=== PATIENT | male | born 2000 | race Caucasian/White ===

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

== ENCOUNTER 2025-03-23 18:59 | Emergency (ER) | payer BC ==
[2025-03-23 19:31] VITALS: BP 140/80; PULSE 93; RESP 16; TEMP 99; BMI 37.2
== END 2025-03-23 21:30 | disposition home or self-care (01) ==
LOC: FER 18:59
DX: J20.9 Acute bronchitis, unspecified (principal); R07.2 Precordial pain; R06.2 Wheezing
CPT/HCPCS: 71046-TC-FY; 87637-QW; 87651; 99283-25